=== PATIENT | female | born 1990 | race Asian ===

== ENCOUNTER 2017-12-18 12:49 | Emergency (ER) | payer BC, OTHER ==
[~2017-12-18] VITALS: Ht 167.6 cm; Wt 84.8 kg
[2017-12-18 13:35] LABS: BASOPHILS # (AUTO) 0.02 x10^3/uL (0-0.1); BASOPHILS % (AUTO) 0 % (0-1); EOSINOPHILS # (AUTO) 0.03 x10^3/uL (0-0.4); EOSINOPHILS % (AUTO) 1 % (1-7); LYMPHOCYTES # (AUTO) 1.15 x10^3/uL (1-3.4); LYMPHOCYTES % (AUTO) 19 % (22-44); MD NO; MEAN CORPUSCULAR HEMOGLOBIN 32.1 pg (27.0-34.8); MEAN CORPUSCULAR HGB CONC 34.5 g/dL (32.4-35.8); MEAN PLATELET VOLUME 7.5 fL (7.4-10.4); MONOCYTES # (AUTO) 0.57 x10^3/uL (0.2-0.8); MONOCYTES % (AUTO) 10 % (2-9); NEUTROPHILS % (AUTO) 70 % (42-75); PLATELET COUNT 247 x10^3/uL (130-400); RED BLOOD COUNT 4.22 x10^6/uL (3.82-5.3); RED CELL DISTRIBUTION WIDTH 13.7 % (9.6-15.2)
[2017-12-18 13:46] LABS: ALBUMIN 3.5 g/dL (3.4-5.0); ANION GAP 7 mmol/L (5-15); CHLORIDE 108 mmol/L (98-107); CREATININE 0.83 mg/dL (0.55-1.02)
[2017-12-18 14:53] VITALS: BP 108/70
== END 2017-12-18 15:12 | disposition home or self-care (01) ==
LOC: ED 13:17
DX: R10.2 Pelvic and perineal pain (principal); R93.9 Diagnostic imaging inconclusive due to excess body fat of patient; F17.210 Nicotine dependence, cigarettes, uncomplicated
CPT/HCPCS: 36415; 76801; 80048; 82040; 84702; 85025; 99285

== ENCOUNTER 2018-03-02 12:07 | Emergency (ER) | payer OTHER ==
[~2018-03-02] VITALS: Ht 167.6 cm; Wt 81.1 kg
[2018-03-02 12:18] VITALS: BP 106/62
[2018-03-02] MEDS ORDERED: METHOCARBAMOL 750 MG TABLET ONE (12:41)
[2018-03-02] MEDS ORDERED: KETOROLAC 30 MG/1 ML ONE (12:41)
[2018-03-02] MEDS ORDERED: KETOROLAC 30 MG/1 ML IM ONE (13:00)
[2018-03-02] MEDS ORDERED: METHOCARBAMOL 750 MG TABLET PO ONE (13:00)
== END 2018-03-02 13:42 | disposition home or self-care (01) ==
LOC: ED 12:41
DX: S39.012A Strain of muscle, fascia and tendon of lower back, initial encounter (principal); X58.XXXA Exposure to other specified factors, initial encounter; Y93.89 Activity, other specified; Y92.89 Other specified places as the place of occurrence of the external cause; Y99.8 Other external cause status
CPT/HCPCS: 72110; 96372; 99284; J1885

== ENCOUNTER 2019-05-05 16:10 | Inpatient (IN) | payer OTHER ==
[~2019-05-05] VITALS: Ht 165.1 cm; Wt 83.2 kg
[2019-05-05] MEDS ORDERED: METR60GE4 TP (16:46)
[2019-05-05] MEDS ORDERED: MINO100C61 PO (16:46)
[2019-05-05] MEDS ORDERED: ONDANSETRON ODT 4 MG PO ONE (17:00)
[2019-05-05] MEDS ORDERED: SODIUM CHLORIDE 0.9% 1,000ML IVBOLUS ONE (17:00)
[2019-05-05] MEDS ORDERED: SODIUM CHLORIDE FLUSH 10ML SYR IVF ONE (17:00)
[2019-05-05] MEDS ORDERED: ACETAMINOPHEN 500 MG TABLET PO ONE (17:00)
[2019-05-05] MEDS ORDERED: KETOROLAC 30 MG/1 ML IVPush ONE (17:00)
--- NOTE | 2019-05-05 17:18 | NUR ---
PT CARE TRANSFERRED TO BREAK RN:
[2019-05-05 17:33] LABS: RAPID INFLUENZA A Negative (Negative); RAPID INFLUENZA B Negative (Negative)
[2019-05-05 17:38] LABS: ALBUMIN 3.3 g/dL (3.4-5.0); ANION GAP 6 mmol/L (5-15); CALCIUM 8.1 mg/dL (8.5-10.1); CHLORIDE 107 mmol/L (98-107); CREATININE 0.97 mg/dL (0.55-1.02)
[2019-05-05 17:58] LABS: MEAN CORPUSCULAR HEMOGLOBIN 31.7 pg (27.0-34.8); MEAN CORPUSCULAR HGB CONC 33.5 g/dL (32.4-35.8); MEAN CORPUSCULAR VOLUME 94.6 fL (80-100); MEAN PLATELET VOLUME 8.1 fL (7.4-10.4); PLATELET COUNT 145 x10^3/uL (130-400); RED BLOOD COUNT 3.93 x10^6/uL (3.82-5.3); RED CELL DISTRIBUTION WIDTH 12.9 % (9.6-15.2)
[2019-05-05] MEDS ORDERED: ACETAMINOPHEN 500 MG TABLET ONE (17:58)
[2019-05-05] MEDS ORDERED: KETOROLAC 30 MG/1 ML ONE (17:58)
[2019-05-05] MEDS ORDERED: ONDANSETRON ODT 4 MG ONE (17:58)
[2019-05-05 18:03] LABS: MD YES
--- NOTE | 2019-05-05 18:05 | NUR ---
TASK RN: RECEIVED CRITICAL LAB RESULT OF WBC 1.5. MD NOTIFIED. PRIMARY RN NOTIFIED.
[2019-05-05 18:09] LABS: <PLATELET ESTIMATE> ADEQUATE; <PLT MORPHOLOGY> NORMAL PLT MORPH; <RBC MORPHOLOGY> NORMAL; BANDS%(MANUAL) 13 % (0-7); BASOS#(MANUAL) 0.02 x10^3/uL (0-0.1); BASOS% (MANUAL) 1 % (0-1); LYMPH#(MANUAL) 0.35 x10^3/uL (1-3.4); LYMPHS% (MANUAL) 23 % (22-44); MONOS#(MANUAL) 0.17 x10^3/uL (0.3-2.7); MONOS% (MANUAL) 11 % (2-9); SEG#(MANUAL) 0.78 x10^3/uL (1.8-6.8); SEGS% (MANUAL) 52 % (42-75)
--- NOTE | 2019-05-05 18:13 | NUR ---
DR YARBROUGH BS
--- NOTE | 2019-05-05 18:15 | NUR ---
PROTECTIVE PRECAUTIONS INTITIATED.
[2019-05-05] MEDS ORDERED: CEFTRIAXONE PMX 1GM/50ML 50 ML IV ONE (18:30)
--- NOTE | 2019-05-05 18:30 | NUR ---
PT C/O GENERALIZED ACHES, INTERMITTANT FEVER, NAUSEA X 1 WEEK. CAMACHO X 2 DAYS. PIV STARTED AND SECOND SET OF BLOOD CULTURES DRAWN. PT MEDICATED PER MAR. AT BEDSIDE. VS STABLE.
--- NOTE | 2019-05-05 18:41 | NUR ---
ATTEPTED TO CALL REPORT. NOC RN TO CALL BACK FOR REPORT.
--- NOTE | 2019-05-05 18:55 | NUR ---
[facility] TELEPHONE HAND-OFF REPORT GIVEN TO FARHAD REYES ON ONCOLOGY.
[2019-05-05] MEDS ORDERED: CEFTRIAXONE PMX 1GM/50ML 50 ML ONE (19:00)
--- NOTE | 2019-05-05 19:11 | NUR ---
CEFTRIAXONE HUNG, INFUSING AT 100ML/HR VIA DIAL-A-FLOW, IV SITE PT. PT C/O NAUSEA; PO TYLENOL WILL BE HELD, FOR NOW.
[2019-05-05] MEDS ORDERED: SODIUM CHLORIDE 0.9% 1,000 ML IV SCH (19:47)
[2019-05-05 20:27] VITALS: BP 82/46
[2019-05-05] MEDS ORDERED: VANCOMYCIN PMX 1GM/200ML 200 ML IV ONE (20:30)
[2019-05-05] MEDS ORDERED: VANCOMYCIN PER PHARMACY MC PRN (20:30)
[2019-05-05 21:00] VITALS: BP 73/54
[2019-05-05] MEDS ORDERED: ONDANSETRON ODT 4 MG PO PRN (21:00)
[2019-05-05] MEDS ORDERED: POLYETHYLENE GLYCOL 17 GM PACKET PO PRN (21:00)
[2019-05-05] MEDS ORDERED: morphine SULFATE 10 MG/ML, 1ML IVPush PRN (21:00)
[2019-05-05] MEDS ORDERED: BISACODYL 10 MG SUPP PR PRN (21:00)
[2019-05-05] MEDS ORDERED: HYDROcodone/APAP 5/325 TABLET PO PRN (21:00)
[2019-05-05] MEDS ORDERED: DOCUSATE 100 MG CAPSULE PO PRN (21:00)
[2019-05-05] MEDS ORDERED: ONDANSETRON 2MG/ML, 2ML IVPush PRN (21:00)
[2019-05-05] MEDS ORDERED: hydrALAzine 20 MG/ML, 1ML IVPush PRN (21:00)
[2019-05-05] MEDS ORDERED: PROMETHAZINE 25 MG/ML, 1ML IM PRN (21:00)
[2019-05-05 21:05] LABS: C-REACTIVE PROTEIN, QUANT 0.61 mg/dL (0.02-0.49)
[2019-05-05 21:15] LABS: FREE T4 (FREE THYROXINE) 0.72 ng/dL (0.76-1.46)
[2019-05-05 21:19] LABS: HEMOGLOBIN A1C 5.4 % (4.2-6.3)
[2019-05-05 21:29] LABS: HCT (SEDRATE) 37.1 % (34.6-47.8)
[2019-05-05 21:30] VITALS: BP 84/50
[2019-05-05 21:57] LABS: MICROSCOPIC AUTO
[2019-05-05 21:59] LABS: CULTURE INDICATED? NO
[2019-05-05] MEDS ORDERED: VANCOMYCIN 1,500 MG in SODIUM CHLORIDE 0.9% 250 ML IV SCH (22:00)
[2019-05-05] MEDS ORDERED: PHARMACOKINETIC MONITORING MC PRN (22:00)
[2019-05-05] MEDS ORDERED: PHARMACOKINETIC CONSULTATION MC ONE (22:00)
[2019-05-05] MEDS: SODIUM CHLORIDE 0.9% 1,000 ML IV SCH (22:28)
[2019-05-05] MEDS: ENOXAPARIN 40 MG/0.4 ML SQ SCH (23:33)
[2019-05-06] MEDS ORDERED: DIPHENHYDRAMINE 50 MG/ML, 1ML ONE (00:13)
[2019-05-06] MEDS: METRONIDAZOLE PMX 500MG/100ML 100 ML IV SCH ×3 (00:19→15:35)
[2019-05-06] MEDS ORDERED: DIPHENHYDRAMINE 50 MG/ML, 1ML IVPush PRN (00:30)
[2019-05-06] MEDS: ACETAMINOPHEN 325 MG TABLET PO PRN ×3 (03:58→23:41)
[2019-05-06] MEDS: CEFEPIME 2 GM in DEXTROSE 5% 100 ML IV SCH ×3 (04:13→19:55)
[2019-05-06 04:51] LABS: MEAN CORPUSCULAR HEMOGLOBIN 31.7 pg (27.0-34.8); MEAN CORPUSCULAR HGB CONC 33.3 g/dL (32.4-35.8); MEAN PLATELET VOLUME 8.1 fL (7.4-10.4); PLATELET COUNT 101 x10^3/uL (130-400); RED CELL DISTRIBUTION WIDTH 13.3 % (9.6-15.2)
[2019-05-06 04:56] LABS: ALBUMIN 2.4 g/dL (3.4-5.0); CALCIUM 6.6 mg/dL (8.5-10.1); CHLORIDE 114 mmol/L (98-107)
[2019-05-06 05:01] LABS: ALANINE AMINOTRANSFERASE 20 U/L (12-78); ALKALINE PHOSPHATASE 76 U/L (45-117); ANION GAP 4 mmol/L (5-15); BILIRUBIN,TOTAL 0.2 mg/dL (0.2-1.0); CHOL/HDL RATIO 2.9; CHOLESTEROL, TOTAL 78 mg/dL (140-239); CREATININE 0.93 mg/dL (0.55-1.02); HDL CHOL % 35 % (28-40); HDL CHOLESTEROL (DIRECT) 27 mg/dL (40-60); LDL CHOLESTEROL,CALCULATED 37 mg/dL (54-169); LDL/HDL RATIO 1.4 (0.5-3.0); TOTAL PROTEIN 6.2 g/dL (6.4-8.2); TRIGLYCERIDES 72 mg/dL (50-200); VLDL CHOLESTEROL 14 mg/dL (0-25)
[2019-05-06 05:20] LABS: MD YES
[2019-05-06 05:29] LABS: BAND#(MANUAL) 0.06 x10^3/uL; BANDS%(MANUAL) 3 % (0-7); LYMPH#(MANUAL) 0.57 x10^3/uL (1-3.4); LYMPHS% (MANUAL) 30 % (22-44); MONOS#(MANUAL) 0.21 x10^3/uL (0.3-2.7); MONOS% (MANUAL) 11 % (2-9); REACTIVE LYMPHS # (MANUAL) 0.02 x10^3/uL (0-0); REACTIVE LYMPHS % (MANUAL) 1 % (0-0); SEG#(MANUAL) 1.05 x10^3/uL (1.8-6.8); SEGS% (MANUAL) 55 % (42-75)
[2019-05-06 05:30] LABS: <PLATELET ESTIMATE> DECREASED; <PLT MORPHOLOGY> NORMAL PLT MORPH; OVALOCYTES 1+; TEAR DROPS 1+
[2019-05-06] MEDS: SODIUM CHLORIDE 0.9% 1,000 ML IV SCH ×3 (05:31→23:32)
[2019-05-06 06:00] VITALS: BP 110/66
[2019-05-06 14:48] LABS: BLD PARASITE SMEAR NO ORGANISMS SEEN (NONE SEEN)
[2019-05-06 14:50] LABS: BORRELIA SMEAR NO SPIROCHETES SEEN (NONE SEEN)
[2019-05-06 17:04] VITALS: BP 108/73
[2019-05-06 21:34] VITALS: BP 103/71
[2019-05-06] MEDS: ENOXAPARIN 40 MG/0.4 ML SQ SCH (23:00)
[2019-05-07 02:27] VITALS: BP 107/71
[2019-05-07] MEDS: CEFEPIME 2 GM in DEXTROSE 5% 100 ML IV SCH ×3 (03:37→19:22)
[2019-05-07 05:11] LABS: MEAN CORPUSCULAR HEMOGLOBIN 32.1 pg (27.0-34.8); MEAN CORPUSCULAR HGB CONC 33.9 g/dL (32.4-35.8); MEAN CORPUSCULAR VOLUME 94.8 fL (80-100); MEAN PLATELET VOLUME 8.3 fL (7.4-10.4); PLATELET COUNT 116 x10^3/uL (130-400); RED BLOOD COUNT 3.25 x10^6/uL (3.82-5.3); RED CELL DISTRIBUTION WIDTH 13.2 % (9.6-15.2)
[2019-05-07 05:13] LABS: ALANINE AMINOTRANSFERASE 25 U/L (12-78); ALBUMIN 2.4 g/dL (3.4-5.0); ANION GAP 5 mmol/L (5-15); CALCIUM 7.6 mg/dL (8.5-10.1); CHLORIDE 114 mmol/L (98-107); CREATININE 0.69 mg/dL (0.55-1.02)
[2019-05-07 05:15] LABS: ALKALINE PHOSPHATASE 86 U/L (45-117); BILIRUBIN,TOTAL 0.2 mg/dL (0.2-1.0)
[2019-05-07 05:47] LABS: MD YES
[2019-05-07 05:50] LABS: BAND#(MANUAL) 0.02 x10^3/uL; BANDS%(MANUAL) 1 % (0-7); LYMPH#(MANUAL) 0.75 x10^3/uL (1-3.4); LYMPHS% (MANUAL) 44 % (22-44); MONOS#(MANUAL) 0.14 x10^3/uL (0.3-2.7); MONOS% (MANUAL) 8 % (2-9); REACTIVE LYMPHS # (MANUAL) 0.05 x10^3/uL (0-0); REACTIVE LYMPHS % (MANUAL) 3 % (0-0); SEG#(MANUAL) 0.75 x10^3/uL (1.8-6.8); SEGS% (MANUAL) 44 % (42-75)
[2019-05-07 05:52] LABS: <PLATELET ESTIMATE> DECREASED; <PLT MORPHOLOGY> NORMAL PLT MORPH; <RBC MORPHOLOGY> NORMAL
[2019-05-07 07:23] VITALS: BP 117/82
[2019-05-07] MEDS: ACETAMINOPHEN 325 MG TABLET PO PRN ×2 (10:57→19:21)
[2019-05-07 12:17] VITALS: BP 108/70
[2019-05-07] MEDS: SODIUM CHLORIDE 0.9% 1,000 ML IV SCH (15:43)
[2019-05-07 19:17] VITALS: BP 125/89
[2019-05-07] MEDS ORDERED: OMNIPAQUE 350 MG/ML, 100ML BOTTLE ONE (20:23)
[2019-05-07 21:01] LABS: BLD PARASITE SMEAR NO ORGANISMS SEEN (NONE SEEN)
[2019-05-07] MEDS: ENOXAPARIN 40 MG/0.4 ML SQ SCH (23:00)
[2019-05-08 01:15] VITALS: BP 110/72
[2019-05-08] MEDS: CEFEPIME 2 GM in DEXTROSE 5% 100 ML IV SCH ×3 (03:30→19:30)
[2019-05-08 05:54] LABS: MEAN CORPUSCULAR HEMOGLOBIN 31.4 pg (27.0-34.8); MEAN CORPUSCULAR HGB CONC 33.4 g/dL (32.4-35.8); MEAN CORPUSCULAR VOLUME 93.8 fL (80-100); MEAN PLATELET VOLUME 7.9 fL (7.4-10.4); PLATELET COUNT 123 x10^3/uL (130-400); RED BLOOD COUNT 3.44 x10^6/uL (3.82-5.3); RED CELL DISTRIBUTION WIDTH 13.3 % (9.6-15.2)
[2019-05-08 06:05] LABS: ANION GAP 5 mmol/L (5-15); CHLORIDE 109 mmol/L (98-107)
[2019-05-08 06:08] LABS: CREATININE 0.73 mg/dL (0.55-1.02)
[2019-05-08 06:36] LABS: MD YES
[2019-05-08 06:41] LABS: BAND#(MANUAL) 0.14 x10^3/uL; BANDS%(MANUAL) 7 % (0-7); LYMPHS% (MANUAL) 25 % (22-44); MONOS#(MANUAL) 0.12 x10^3/uL (0.3-2.7); MONOS% (MANUAL) 6 % (2-9); SEG#(MANUAL) 1.24 x10^3/uL (1.8-6.8); SEGS% (MANUAL) 62 % (42-75)
[2019-05-08 06:42] LABS: <PLATELET ESTIMATE> DECREASED; <PLT MORPHOLOGY> NORMAL PLT MORPH; OVALOCYTES 1+
[2019-05-08 07:26] VITALS: BP 125/72
[2019-05-08] MEDS: ACETAMINOPHEN 325 MG TABLET PO PRN ×2 (08:16→19:01)
[2019-05-08 13:24] LABS: ABSOLUTE RETICS # 0.032 x10^6/uL (0.5-2.5); RED BLOOD COUNT 3.51 x10^6/uL (3.82-5.3); RETICULOCYTE COUNT % 0.91 % (0.5-1.5)
[2019-05-08 14:19] VITALS: BP 101/60
[2019-05-08 21:09] VITALS: BP 104/71
[2019-05-08] MEDS: ENOXAPARIN 40 MG/0.4 ML SQ SCH (23:00)
[2019-05-09] MEDS: CEFEPIME 2 GM in DEXTROSE 5% 100 ML IV SCH ×3 (03:30→19:30)
[2019-05-09 04:26] VITALS: BP 102/67
[2019-05-09 05:59] LABS: MEAN CORPUSCULAR HEMOGLOBIN 31.2 pg (27.0-34.8); MEAN CORPUSCULAR HGB CONC 32.8 g/dL (32.4-35.8); MEAN CORPUSCULAR VOLUME 95.2 fL (80-100); MEAN PLATELET VOLUME 8.4 fL (7.4-10.4); PLATELET COUNT 142 x10^3/uL (130-400); RED BLOOD COUNT 3.59 x10^6/uL (3.82-5.3); RED CELL DISTRIBUTION WIDTH 13.3 % (9.6-15.2)
[2019-05-09 06:01] LABS: ANION GAP 5 mmol/L (5-15); CHLORIDE 112 mmol/L (98-107); CREATININE 0.67 mg/dL (0.55-1.02)
[2019-05-09 06:19] LABS: MD YES
[2019-05-09 06:24] LABS: BAND#(MANUAL) 0.05 x10^3/uL; BANDS%(MANUAL) 3 % (0-7); LYMPH#(MANUAL) 0.77 x10^3/uL (1-3.4); LYMPHS% (MANUAL) 51 % (22-44); MONOS#(MANUAL) 0.17 x10^3/uL (0.3-2.7); MONOS% (MANUAL) 11 % (2-9); SEG#(MANUAL) 0.53 x10^3/uL (1.8-6.8); SEGS% (MANUAL) 35 % (42-75)
[2019-05-09 06:26] LABS: <PLATELET ESTIMATE> ADEQUATE; <PLT MORPHOLOGY> NORMAL PLT MORPH; OVALOCYTES 1+
[2019-05-09 07:34] VITALS: BP 101/70
[2019-05-09 13:02] VITALS: BP 111/79
[2019-05-09] MEDS ORDERED: ERGOCALCIFEROL 50,000 UNIT CAPSULE PO SCH (15:00)
[2019-05-09 19:09] VITALS: BP 93/59
[2019-05-09] MEDS: ENOXAPARIN 40 MG/0.4 ML SQ SCH (22:17)
[2019-05-10] MEDS: CEFEPIME 2 GM in DEXTROSE 5% 100 ML IV SCH (03:27)
[2019-05-10 06:58] LABS: MEAN CORPUSCULAR HEMOGLOBIN 31.6 pg (27.0-34.8); MEAN CORPUSCULAR HGB CONC 33.3 g/dL (32.4-35.8); MEAN CORPUSCULAR VOLUME 94.9 fL (80-100); MEAN PLATELET VOLUME 8.1 fL (7.4-10.4); PLATELET COUNT 152 x10^3/uL (130-400); RED BLOOD COUNT 3.45 x10^6/uL (3.82-5.3); RED CELL DISTRIBUTION WIDTH 13.1 % (9.6-15.2)
[2019-05-10 07:04] LABS: ANION GAP 4 mmol/L (5-15); CALCIUM 8.2 mg/dL (8.5-10.1); CHLORIDE 111 mmol/L (98-107)
[2019-05-10 07:06] LABS: CREATININE 0.68 mg/dL (0.55-1.02)
[2019-05-10 07:35] LABS: MD YES
[2019-05-10 07:37] LABS: BAND#(MANUAL) 0.05 x10^3/uL; BANDS%(MANUAL) 3 % (0-7); EOS#(MANUAL) 0.02 x10^3/uL (0.0-0.4); EOS% (MANUAL) 1 % (1-7); LYMPH#(MANUAL) 0.61 x10^3/uL (1-3.4); LYMPHS% (MANUAL) 36 % (22-44); MONOS#(MANUAL) 0.14 x10^3/uL (0.3-2.7); MONOS% (MANUAL) 8 % (2-9); SEG#(MANUAL) 0.88 x10^3/uL (1.8-6.8); SEGS% (MANUAL) 52 % (42-75)
[2019-05-10 07:38] LABS: <PLATELET ESTIMATE> ADEQUATE; <PLT MORPHOLOGY> NORMAL PLT MORPH; OVALOCYTES 1+
[2019-05-10] MEDS ORDERED: ERGO500017 PO (10:27)
== END 2019-05-10 12:14 | disposition home or self-care (01) | DRG 872 ==
LOC: ED 17:03 → EDIP 18:24 → 4NE 19:35 → CCU 21:58 → 4NE 05-06 16:19 → 3N 05-09 14:46
PROVIDERS: ADMIT Internal Medicine; ATTEND Internal Medicine
DX: A41.9 Sepsis, unspecified organism (principal); B54 Unspecified malaria; D61.818 Other pancytopenia; D63.8 Anemia in other chronic diseases classified elsewhere; D69.59 Other secondary thrombocytopenia; D70.3 Neutropenia due to infection; E55.9 Vitamin D deficiency, unspecified; E88.09 Other disorders of plasma-protein metabolism, not elsewhere classified; F17.210 Nicotine dependence, cigarettes, uncomplicated; R65.20 Severe sepsis without septic shock; R50.81 Fever presenting with conditions classified elsewhere; N20.0 Calculus of kidney; L71.9 Rosacea, unspecified; H66.003 Acute suppurative otitis media without spontaneous rupture of ear drum, bilateral; F91.3 Oppositional defiant disorder; Z87.442 Personal history of urinary calculi
CPT/HCPCS: 36415; 71045; 74177; 76700; 80048; 80053; 80061; 81001; 82040; 82306; 82607; 82728; 83036; 83540; 83550; 83605; 83735; 84100; 84145; 84439; 84443; 84703; 85025; 85045; 85651; 86140; 86480; 86592; 86638; 87040; 87046; 87081; 87103; 87116; 87205; 87207; 87389; 87400; 87427; 87491; 87591; 87633; 87880; 88313; 93005; 93306; 96361; 96374; 96375; 99291; J0696; J1650; J1885; J3370; J7030; J7050; Q0162; Q9967; 87206; G0378